=== PATIENT | male | born 1940 | race Caucasian/White ===

== ENCOUNTER 2019-01-04 11:14 | Observation (INO) | payer MEDICARE, BC ==
[~2019-01-04] VITALS: Ht 185.4 cm; Wt 100.0 kg
[~2019-01-04 11:14] MED LIST: ASPI-611 PO; CARCD120C PO; NITR0.4T48 SL; RAMI2.5C2 PO; SIMV20TA5 PO; SUCR1TAB PO
[2019-01-04 11:48] LABS: BASOPHILS % (AUTO) 0.7 % (0-1); EOSINOPHILS # (AUTO) 0.1 X10'3 (0-0.9); EOSINOPHILS % (AUTO) 1.6 % (0-6); HEMATOCRIT 44.4 % (42.0-52.0); HEMOGLOBIN 15.1 g/dl (14.0-17.9); LYMPHOCYTES # (AUTO) 1.7 X10'3 (1.1-4.8); LYMPHOCYTES % (AUTO) 28.7 % (21-51); MEAN CORPUSCULAR HEMOGLOBIN 30.6 PG (27.0-31.0); MEAN CORPUSCULAR HGB CONC 34.1 g/dL (33.0-36.5); MEAN CORPUSCULAR VOLUME 89.7 FL (78-98); MEAN PLATELET VOLUME 7.7 FL (7.4-10.4); MONOCYTES # (AUTO) 0.7 X10'3 (0-0.9); MONOCYTES % (AUTO) 11.7 % (2-12); NEUTROPHILS # (AUTO) 3.4 X10'3 (1.8-7.7); NEUTROPHILS % (AUTO) 57.3 % (42-75); PLATELET COUNT 197 X10'3 (140-440); RED BLOOD COUNT 4.95 X10'6 (4.70-6.10); RED CELL DISTRIBUTION WIDTH 13.7 % (11.5-14.5); WHITE BLOOD COUNT 5.9 X10'3 (4.5-11.0)
[2019-01-04 11:55] LABS: PARTIAL THROMBOPLASTIN TIME 27 SECONDS (22-32); PROTHROMBIN TIME 10.3 SECONDS (9.0-12.0)
[2019-01-04 11:57] LABS: ALANINE AMINOTRANSFERASE 39 U/L (12-78); ALBUMIN 3.9 G/DL (3.4-5.0); ALBUMIN/GLOBULIN RATIO 1.3 (1.1-1.5); ALKALINE PHOSPHATASE 52 IU/L (46-116); ANION GAP 5 (8-16); ASPARTATE AMINO TRANSFERASE 24 U/L (10-37); BILIRUBIN,TOTAL 0.3 MG/DL (0.1-1.0); BLOOD UREA NITROGEN 14 MG/DL (7-18); BUN/CREATININE RATIO 13.9 (5.4-32.0); CALCIUM 8.9 MG/DL (8.5-10.1); CHLORIDE 104 MMOL/L (99-107); CREATININE 1.01 MG/DL (0.60-1.10); GLUCOSE 117 MG/DL (70-104); SODIUM 137 MMOL/L (135-145); eGFR 72 ML/MIN
[2019-01-04] MEDS ORDERED: DILT120C51 PO (12:54)
[2019-01-04] MEDS ORDERED: ondansetron/PF 4mg/2ml inj IV PRN (13:25)
[2019-01-04] MEDS ORDERED: mag hydrox/Alum hydrox/simeth 30ml oral suspension PO PRN (13:25)
[2019-01-04] MEDS ORDERED: magnesium 2GM in 50ml NS 50 ML IV PRN (13:25)
[2019-01-04] MEDS ORDERED: potassium Cl 40MEQ/NS 500ml 500 ML IV PRN ×2 (13:25)
[2019-01-04] MEDS ORDERED: magnesium 4gm in 100ml NS 100 ML IV PRN (13:25)
[2019-01-04] MEDS ORDERED: acetaminophen 325mg tablet PO PRN (13:25)
[2019-01-04] MEDS ORDERED: magnesium hydroxide 30ml (MOM) UD suspension PO PRN (13:25)
[2019-01-04] MEDS ORDERED: magnesium Cl slow-release 64mg tablet PO PRN (13:25)
[2019-01-04] MEDS ORDERED: potassium Cl 20 mEq SR tablet PO PRN ×2 (13:25)
[2019-01-04] MEDS ORDERED: morphine 4 MG/ML inj SYRINge IV PRN (13:25)
[2019-01-04] MEDS ORDERED: nitroGLYCERIN 0.4mg SUBLingual tab SL PRN ×2 (13:30→14:20)
[2019-01-04] MEDS ORDERED: metoprolol tartrate 1mg/ml inj IV PRN (14:20)
[2019-01-04] MEDS ORDERED: aminophylline 250mg/10ml inj. IV PRN (14:20)
[2019-01-04] MEDS ORDERED: regadenoson 0.4mg/5ml syringe IV PRN (14:20)
[2019-01-04] MEDS: sucralfate 1 gm tablet PO SCH ×2 (14:27→20:51)
--- NOTE | 2019-01-04 14:35 | NUR ---
SAM CALLED AND SAID THE OLIVE SCAN WILL NOT BE HAPPENING TODAY BUT WILL GET TO IT IN THE MORNING
[2019-01-04] MEDS ORDERED: morphine 2 MG/ML inj. syringe IV PRN (14:50)
--- NOTE | 2019-01-04 16:28 | NUR ---
Pt arrived from ED. Pt oriented to room. Call light within reach, pt hooked up on monitor
[2019-01-04 17:23] LABS: HEMOGLOBIN A1C 6.6 % (4.5-6.2)
[2019-01-04 18:00] VITALS: BP 122/65
[2019-01-04] MEDS: heparin, porcine 5000 units/ml vial SQ SCH (20:50)
[2019-01-04] MEDS: carVEDilol 3.125mg tablet PO SCH (20:51)
[2019-01-04] MEDS ORDERED: diltiazem CD 120mg capsule (once-daily) PO SCH (21:00)
[2019-01-04] MEDS ORDERED: atorvastatin 10mg tablet PO SCH (21:00)
[2019-01-04 22:00] VITALS: BP 135/69
[2019-01-05] VITALS (10 sets, daily range): BP systolic 131–179; BP diastolic 63–86
[2019-01-05] MEDS: sucralfate 1 gm tablet PO SCH ×2 (02:30→08:00)
[2019-01-05 05:22] LABS: BASOPHILS % (AUTO) 0.5 % (0-1); EOSINOPHILS # (AUTO) 0.1 X10'3 (0-0.9); HEMATOCRIT 45.2 % (42.0-52.0); HEMOGLOBIN 15.8 g/dl (14.0-17.9); LYMPHOCYTES # (AUTO) 2.7 X10'3 (1.1-4.8); LYMPHOCYTES % (AUTO) 39.1 % (21-51); MEAN CORPUSCULAR HGB CONC 34.9 g/dL (33.0-36.5); MEAN CORPUSCULAR VOLUME 88.8 FL (78-98); MEAN PLATELET VOLUME 7.5 FL (7.4-10.4); MONOCYTES # (AUTO) 0.8 X10'3 (0-0.9); MONOCYTES % (AUTO) 11.2 % (2-12); NEUTROPHILS # (AUTO) 3.3 X10'3 (1.8-7.7); NEUTROPHILS % (AUTO) 47.2 % (42-75); PLATELET COUNT 186 X10'3 (140-440); RED BLOOD COUNT 5.09 X10'6 (4.70-6.10); RED CELL DISTRIBUTION WIDTH 13.5 % (11.5-14.5); WHITE BLOOD COUNT 6.9 X10'3 (4.5-11.0)
[2019-01-05 05:50] LABS: ALANINE AMINOTRANSFERASE 42 U/L (12-78); ALBUMIN 3.8 G/DL (3.4-5.0); ALBUMIN/GLOBULIN RATIO 1.2 (1.1-1.5); ALKALINE PHOSPHATASE 51 IU/L (46-116); ANION GAP 10 (8-16); ASPARTATE AMINO TRANSFERASE 22 U/L (10-37); BILIRUBIN,TOTAL 0.4 MG/DL (0.1-1.0); BLOOD UREA NITROGEN 13 MG/DL (7-18); BUN/CREATININE RATIO 14.4 (5.4-32.0); CALCIUM 8.9 MG/DL (8.5-10.1); CHLORIDE 105 MMOL/L (99-107); CHOLESTEROL 176 MG/DL (0-200); GLUCOSE 102 MG/DL (70-104); HDL CHOLESTEROL 35 MG/DL (35-60); LDL CHOLESTEROL 117 MG/DL (50-100); POTASSIUM 3.8 MMOL/L (3.5-5.1); SODIUM 140 MMOL/L (135-145); TOTAL CARBON DIOXIDE 24.9 MMOL/L (24-32); TRIGLYCERIDES 215 MG/DL (20-135); eGFR 82 ML/MIN
[2019-01-05] MEDS ORDERED: K and/or MAG REPLACEMENT MC SCH (08:00)
[2019-01-05] MEDS ORDERED: aspirin 81mg tab.chew PO SCH (08:00)
[2019-01-05] MEDS: carVEDilol 3.125mg tablet PO SCH (08:00)
[2019-01-05] MEDS: heparin, porcine 5000 units/ml vial SQ SCH (08:00)
[2019-01-05] MEDS ORDERED: lisinopril 5mg tablet PO SCH (08:00)
[2019-01-05] MEDS ORDERED: regadenoson 0.4mg/5ml syringe IV ONE (08:49)
[2019-01-05] MEDS ORDERED: aminophylline inj. 10 ML IV ONE (08:49)
--- NOTE | 2019-01-05 11:50 | NUR ---
Bre Negative Paged Dr. Stack "Re: Clement in 313. FYI stress test was negative. patient can be discharged whenever you would like. thank you, Pippa MICHAELS [phone]"
--- NOTE | 2019-01-05 12:45 | NUR ---
PROVIDED PATIENT WITH DISCHARGE INSTRUCTIONS AND RECOMMENDATION TO FOLLOW UP WITH PRIMARY CARE DOCTOR IN 1 WEEK. PATIENT DOES NOT HAVE ANY NEW PRESCRIPTIONS, AND IS AWARE TO CONTINUE ALL HOME MEDICATIONS. IV REMOVED, CATHETER INTACT, MINIMAL BLEEDING CLEAN GAUZE APPLIED AND SECURED WITH TAPE. MONITOR DC'D. PATIENT GOT HIMSELF DRESSED AND WAS TAKEN HOME VIA PRIVATE VEHICLE BY HIS . PATIENT IS AMBULATORY, ALERT, ORIENTED, CALM, DENYING CHEST PAIN UPON DISCHARGE.
== END 2019-01-05 13:00 | disposition home or self-care (01) ==
LOC: ER 11:14 → ED HOLD 13:23 → MED 3N 16:34
PROVIDERS: ADMIT Internal Medicine; ATTEND Family Medicine
DX: I20.9 Angina pectoris, unspecified (principal); M19.012 Primary osteoarthritis, left shoulder; E78.5 Hyperlipidemia, unspecified; E78.00 Pure hypercholesterolemia, unspecified; I10 Essential (primary) hypertension; E11.9 Type 2 diabetes mellitus without complications; R09.89 Other specified symptoms and signs involving the circulatory and respiratory systems; I49.9 Cardiac arrhythmia, unspecified; Z86.79 Personal history of other diseases of the circulatory system
CPT/HCPCS: 36415; 71045; 78452; 80053; 80061; 82948; 83036; 83735; 84484; 85025; 85610; 85730; 87070; 93005; 93017; 93306; 96372; 96374; 99284; A9500; G0378; J0280; J1644; J2270

== ENCOUNTER 2019-09-02 23:48 | Emergency (ER) | payer MEDICARE, BC ==
[~2019-09-02 23:48] MED LIST changes: -CARCD120C PO; +DILT120C51 PO; +SIMV-42 PO; -SIMV20TA5 PO
[2019-09-02] MEDS ORDERED: ketorolac trometh. 30mg/ml inj. IV ONE (23:55)
[2019-09-02] MEDS ORDERED: magnesium hydroxide 30ml (MOM) UD suspension PO ONE (23:55)
[2019-09-03] MEDS ORDERED: LORazepam 2 mg/ml vial IV ONE
[2019-09-03 00:43] LABS: BASOPHILS # (AUTO) 0.1 X10'3 (0-0.2); BASOPHILS % (AUTO) 1.4 % (0-1); EOSINOPHILS # (AUTO) 0.2 X10'3 (0-0.9); EOSINOPHILS % (AUTO) 3.5 % (0-6); HEMATOCRIT 41.2 % (42.0-52.0); LYMPHOCYTES # (AUTO) 1.8 X10'3 (1.1-4.8); LYMPHOCYTES % (AUTO) 28.7 % (21-51); MEAN CORPUSCULAR HEMOGLOBIN 30.7 PG (27.0-31.0); MEAN CORPUSCULAR HGB CONC 33.9 g/dL (33.0-36.5); MEAN CORPUSCULAR VOLUME 90.5 FL (78-98); MEAN PLATELET VOLUME 7.9 FL (7.4-10.4); MONOCYTES # (AUTO) 0.8 X10'3 (0-0.9); MONOCYTES % (AUTO) 13.2 % (2-12); NEUTROPHILS # (AUTO) 3.3 X10'3 (1.8-7.7); NEUTROPHILS % (AUTO) 53.2 % (42-75); PLATELET COUNT 159 X10'3 (140-440); RED BLOOD COUNT 4.55 X10'6 (4.70-6.10); RED CELL DISTRIBUTION WIDTH 13.5 % (11.5-14.5); WHITE BLOOD COUNT 6.2 X10'3 (4.5-11.0)
[2019-09-03 00:52] LABS: D-DIMER < 0.19 MG/L FEU (0-0.50)
[2019-09-03 00:58] LABS: ALANINE AMINOTRANSFERASE 23 U/L (12-78); ALBUMIN 3.5 G/DL (3.4-5.0); ALBUMIN/GLOBULIN RATIO 1.2 (1.1-1.5); ALKALINE PHOSPHATASE 46 IU/L (46-116); ANION GAP 8 (8-16); ASPARTATE AMINO TRANSFERASE 13 U/L (10-37); BILIRUBIN,TOTAL 0.2 MG/DL (0.1-1.0); BLOOD UREA NITROGEN 21 MG/DL (7-18); BUN/CREATININE RATIO 17.5 (5.4-32.0); CALCIUM 8.5 MG/DL (8.5-10.1); CHLORIDE 106 MMOL/L (99-107); GLUCOSE 149 MG/DL (70-104); POTASSIUM 3.6 MMOL/L (3.5-5.1); SODIUM 139 MMOL/L (135-145); TOTAL PROTEIN 6.5 G/DL (6.4-8.2); eGFR 59 ML/MIN
[2019-09-03 01:31] VITALS: BP 120/61
== END 2019-09-03 01:32 | disposition home or self-care (01) ==
LOC: ER 23:49
DX: R07.89 Other chest pain (principal); E78.00 Pure hypercholesterolemia, unspecified; I10 Essential (primary) hypertension; E11.9 Type 2 diabetes mellitus without complications; Z87.891 Personal history of nicotine dependence; Z79.82 Long term (current) use of aspirin; Z79.899 Other long term (current) drug therapy
CPT/HCPCS: 36415; 71045; 80053; 84484; 85025; 85379; 93005; 96374; 96375; 99284; J1885; J2060